=== PATIENT | female | born 1965 | race Caucasian/White ===

== ENCOUNTER 2021-11-16 14:47 | Emergency (ER) | payer SELFPAY ==
[2021-11-16] MEDS ORDERED: LISINOPRIL10 MG (15:03)
[2021-11-16 15:35] LABS: BASO # 0.02 K/mm3 (0.02-0.10); EOS # 0.02 K/mm3 (0.04-0.40); EOS % 0.3 % (1.0-5.0); HEMATOCRIT 38.9 % (37.0-47.0); MEAN CELL VOLUME 87 fl (78-100); MEAN CORPUSCULAR HEMOGLOBIN 29 pg (27-31); MEAN CORPUSCULAR HGB CONC 33 g/dL (33-37); MEAN PLATELET VOLUME 9.1 fl (7.4-10.4); NEU # 5.95 K/mm3 (1.40-6.50); PLATELET COUNT 395 K/mm3 (130-400); RED BLOOD COUNT 4.49 M/mm3 (4.10-5.30); RED CELL DISTRIBUTION WIDTH 12.9 % (11.5-14.5); WHITE BLOOD COUNT 7.3 K/mm3 (4.8-10.8)
[2021-11-16 15:44] LABS: ALBUMIN 3.5 g/dL (3.5-5.0)
[2021-11-16 15:46] LABS: CALCIUM 9.1 mg/dL (8.3-10.5)
[2021-11-16 15:47] LABS: TOTAL PROTEIN 6.6 g/dL (6.4-8.3)
[2021-11-16 15:49] LABS: TOTAL BILIRUBIN 0.6 mg/dL (0.2-1.2)
[2021-11-16] MEDS ORDERED: ZOFRAN ODT4 MG PO (17:27)
[2021-11-16 18:08] VITALS: BP 104/72
== END 2021-11-16 18:08 | disposition home or self-care (01) ==
LOC: ED 14:47
PROVIDERS: Physician Assistant
DX: U07.1 COVID-19 (principal); E86.0 Dehydration; N28.9 Disorder of kidney and ureter, unspecified; I10 Essential (primary) hypertension; Z79.899 Other long term (current) drug therapy
CPT/HCPCS: J7030

== ENCOUNTER → 2024-10-20 | Outpatient (CLI) | payer SELFPAY ==
[~2024-10-20] MED LIST: LISINOPRIL10 MG; ZOFRAN ODT4 MG PO
== END ==
LOC: MAMMO 10:57
DX: Z12.39 Encounter for other screening for malignant neoplasm of breast (principal)